=== PATIENT | female | born 2000 | race Caucasian/White ===

== ENCOUNTER 2019-09-24 19:35 | Emergency (ER) | payer OTHER, SELFPAY ==
[2019-09-24 19:43] VITALS: BP 135/70; PULSE 77; RESP 18; TEMP 36.9; O2SAT 100
[2019-09-24 19:52] VITALS: PULSE 73; RESP 16; O2SAT 99
[2019-09-24] MEDS: ALBUTEROL/IPRATROPIUM 3 ML AMPUL INH (19:52)
--- NOTE | 2019-09-24 19:57 | ED.URI ---
HPI - URI/Sore Throat <KSENIA Geller - Last Filed: 09/24/19 20:15> General Chief Complaint: Upper Respiratory Symptoms Stated Complaint: chest pain with wheezing Time Seen by Provider: 09/24/19 19:45 Source: patient Mode of arrival: Ambulatory Limitations: no limitations History of Present Illness HPI Narrative: This is a 19-year-old female, some day smoker, who presents to ED with chief complain of cold symptoms for last 2 weeks with short of breath and chest discomfort with cough. Patient reports cough and denies fever, chills, nausea or vomiting, sore throat or runny nose. She had ill exposure to someone who has cold symptoms but denies recent foreign travel. Patient has history of childhood asthma which she grew out of bed but she is prone to get upper respiratory infection. Patient is not currently using inhaler at this time. Related Data Home Medications Medication Instructions Recorded Confirmed lithium carbonate 09/24/19 prazosin 09/24/19 Previous Rx's Medication Instructions Recorded prednisone 20 mg PO DAILY 4 Days #4 tab 09/24/19 Allergies Allergy/AdvReac Type Severity Reaction Status Date / Time No Known Drug Allergies Allergy Verified 09/24/19 19:52 Review of Systems <KSENIA Geller - Last Filed: 09/24/19 20:15> Review of Systems Narrative: General: Denies fever, chills, fatigue, malaise, sweats. HEENT: Denies sinus pain, ear pain, sore throat, difficulty swallowing, dizziness. Respiratory: See HPI Cardiovascular: Denies chest pain, palpitations, orthopnea, edema. Gastrointestinal: Denies nausea, vomiting, abdominal pain, diarrhea, constipation, melena. : Denies dysuria, frequency, incontinence, hematuria, urinary retention. Musculoskeletal: Denies weakness, joint pain or bony pain. Skin: Denies rash, skin lesions, or other. Neurologic: Denies weakness, headache, numbness, change in speech, confusion, seizures, incoordination. Psychiatric: No concerning psychosocial issues. 12-point review of systems is negative except for those stated above. Patient History <KSENIA Geller - Last Filed: 09/24/19 20:15> Medical History (Updated 09/24/19 @ 20:12 by KSENIA Geller) Anxiety (Acute) History of asthma (Acute) Insomnia (Acute) PTSD (post-traumatic stress disorder) (Acute) Social History Smoking Status: Current some day smoker Smoking Status: Current some day smoker Substance Use Type: marijuana Exam <KSENIA Geller - Last Filed: 09/24/19 20:15> Narrative Exam Narrative: General appearance: well developed, well nourished, in no acute distress. Head: normocephalic, atraumatic, no scalp lesions, non-tender. ENT: Hearing grossly intact. Nose without bleeding, purulent discharge. Mucous membrane moist, no mucosal lesion. Throat without erythema, tonsillar hypertrophy or exudate. Uvula in midline, airway patent. Neck/Thyroid: neck supple, full range of motion, no visible masses or meningeal signs. No JVD, non-tender without lymphadenopathy. Skin: no suspicious rashes, lesions over visible areas. Warm and dry and appropriate color for ethnicity. Heart: no clubbing, no cyanosis, no edema. S1 and S2 normal. RRR w/o murmurs, clicks, or bruits. Lungs: Breathing even and unlabored. No stridor. No accessory muscles used. Able to speak in full sentences. Lung sounds decreased in all lobes. No wheezing, crackles or rhonchi noted. Chest: normal shape and expansion. Abdomen: non-obese, non-distended. Neurologic: alert and oriented. Cognitive exam, WAX SPECIALIST and PNS grossly intact on informal exam. Psych: good eye contact, normal affect. Initial Vital Signs Initial Vital Signs: Vital Signs Temperature 98.4 F 09/24/19 19:43 Pulse Rate 77 09/24/19 19:43 Respiratory Rate 18 09/24/19 19:43 Blood Pressure 135/70 09/24/19 19:43 Pulse Oximetry 100 09/24/19 19:43 <Miguel Huber MD - Last Filed: 09/24/19 20:58> Initial Vital Signs Initial Vital Signs: Vital Signs Temperature 98.4 F 09/24/19 19:43 Pulse Rate 77 09/24/19 19:43 Respiratory Rate 18 09/24/19 19:43 Blood Pressure 135/70 09/24/19 19:43 Pulse Oximetry 100 09/24/19 19:43 Course <KSENIA Geller - Last Filed: 09/24/19 20:15> Orders Ordered: ED Orders 09/24/19 19:46 EKG-12 Lead Stat Discontinued Medications Albuterol (Ventolin Hfa Prepack) 1 box MISC SEEINSTR ONE Stop: 09/24/19 20:04 Last Admin: 09/24/19 20:10 Dose: 1 box Documented by: YINRIDDAMIEN Albuterol/Ipratropium (Duoneb) 3 ml INH NOW ONE Stop: 09/24/19 19:47 Last Admin: 09/24/19 19:52 Dose: 3 ml Documented by: YINRIDDAMIEN Prednisone (Deltasone) 20 mg PO NOW ONE Stop: 09/24/19 20:04 Last Admin: 09/24/19 20:13 Dose: 20 mg Documented by: LORI Vital Signs Vital signs: Vital Signs - 8 hr 09/24/19 19:43 09/24/19 19:52 Temperature 98.4 F Pulse Rate 77 73 Respiratory Rate 18 16 Blood Pressure [Left Arm] 135/70 Pulse Oximetry 100 99 <Miguel Huber MD - Last Filed: 09/24/19 20:58> Orders Ordered: ED Orders 09/24/19 19:46 EKG-12 Lead Stat Discontinued Medications Albuterol (Ventolin Hfa Prepack) 1 box MISC SEEINSTR ONE Stop: 09/24/19 20:04 Last Admin: 09/24/19 20:10 Dose: 1 box Documented by: GERHARD Albuterol/Ipratropium (Duoneb) 3 ml INH NOW ONE Stop: 09/24/19 19:47 Last Admin: 09/24/19 19:52 Dose: 3 ml Documented by: YINRIDDAMIEN Prednisone (Deltasone) 20 mg PO NOW ONE Stop: 09/24/19 20:04 Last Admin: 09/24/19 20:13 Dose: 20 mg Documented by: LORI Vital Signs Vital signs: Vital Signs - 8 hr 09/24/19 19:43 09/24/19 19:52 Temperature 98.4 F Pulse Rate 77 73 Respiratory Rate 18 16 Blood Pressure [Left Arm] 135/70 Pulse Oximetry 100 99 MDM - URI/Sore Throat <KSENIA Geller - Last Filed: 09/24/19 20:15> Differential Diagnosis Differential diagnosis: Likely upper respiratory infection and other (bronchitis) Medical Records Attestation: I reviewed the patient's medical records. ECG Data Attestation: I personally reviewed and interpreted this ECG as follows: Prior ECG tracings: not available for review Interpretation: SR rate at 71 NE int 154, QRS duration 82, QT/QTC 368/[address] [place] [address] elevation or depression. MDM Narrative Medical decision making narrative: This is a 19-year-old female who has history of childhood asthma who presents to ED with cough for last 2 weeks. Patient reports chest pain with cough and denies systemic illness such as fever, chills, nausea or vomiting. Patient reports she is prone to get bronchitis or URI. Patient currently is not using inhaler. Lung sounds were decrease in all lobes without obvious wheezing. Patient is afebrile with non tachypnea and O2 sat is 99% in room air. Patient was provided with nebulizer treatment while in ED and discharged to home with MDI teaching with prepack of albuterol and a short burst of prednisone course. Return precautions were discussed with the patient and patient verbalized understanding and agreement with treatment plan. Discharge Plan Departure Patient Disposition: Home Clinical Impression: Bronchitis Discharge Date/Time: 09/24/19 20:30 Instructions: DI for Acute Bronchitis Activity Restrictions/Additional Instructions: You have been diagnosed with [bronchitis, upper respiratory infection. Your lung sounds were decreased in all without obvious wheezing. Your provided with nebulizer treatment in ED and discharged to home with albuterol prepack and spacer. You can use this for chest tightness, frequent coughing, wheezing 2 puffs every 4 hours as needed. You were treated with low dose of steroid. Your EKG looks good]. What to do: *Take your medications as directed. Please take prednisone next 4 days daily and try to take it early during the day. You can use [id number] Mucinex DM for cough. Please hydrate well and use good hand hygiene to prevent transmitting illness to others. *Follow up with your primary care provider in 2-3 days, call for an appointment. Let them know you were seen in the ED and that we asked you to be seen in follow up. *Return to ED if you have any new, worsening, or concerning symptoms, such as [different or worsening chest pain, fever, unable to tolerate fluids, breathing difficulty, or any acute concerns]. Prescriptions: New prednisone 20 mg tablet 20 mg PO DAILY 4 Days Qty: 4 RF: 0 No Action lithium carbonate RF: 0 prazosin RF: 0 Referrals: [facility] [Outside]
[2019-09-24] MEDS: ALBUTEROL HFA PREPACK 1 BOX MISC (20:10)
[2019-09-24] MEDS: predniSONE 20 MG TABLET PO (20:13)
== END 2019-09-24 20:30 | disposition home or self-care (01) ==
LOC: ED 20:27
PROVIDERS: Emergency Provider Nurse Practitioner Family
DX: J40 Bronchitis, not specified as acute or chronic (principal); R07.9 Chest pain, unspecified
CPT/HCPCS: 93005; 93010; 94640; 99283

== ENCOUNTER 2019-09-30 10:30 | Emergency (ER) | payer OTHER, SELFPAY ==
[2019-09-30 10:39] VITALS: BP 117/66; PULSE 92; RESP 16; TEMP 37; O2SAT 100
--- NOTE | 2019-09-30 10:39 | ED_ITS ---
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 And trying to mediate the damage of not having insurance her therapist has increased her methylphenidate from 18 mg to 36 mg and her prazosin from 2 mg to 4 mg at bedtime she continues with lithium, propranolol and quetiapine. The methylphenidate and prazosin change was on Monday. She was seen on Monday with the bronchitis exacerbation and also started on prednisone. Today she is complaining of headache that persisted since Monday that she describes as a migraine with nausea and confusion, she complains that she is jittery increasingly anxious and having palpitations. She states that her Apple watch is noted that her resting heart rate over much the weekend was in the 130 range. She did not take her prednisone this morning. She states that her cough and wheeze has significantly improved. She has got no fevers. She does have a headache she does have increased confusion and dif ficulty thinking, no abdominal pain mild nausea, no rashes, no chest pain she has noticed the palpitations listed above Related Data Home Medications Medication Instructions Recorded Confirmed lithium carbonate 600 mg PO BEDTIME 09/30/19 09/30/19 methylphenidate HCl 36 mg PO DAILY 09/30/19 09/30/19 prazosin 2 mg PO BEDTIME 09/30/19 09/30/19 propranolol 20 mg PO PRN PRN 09/30/19 09/30/19 quetiapine 100 mg PO BEDTIME 09/30/19 09/30/19 Previous Rx's Medication Instructions Recorded prednisone 20 mg PO DAILY 4 Days #4 tab 09/24/19 Allergies Allergy/AdvReac Type Severity Reaction Status Date / Time No Known Drug Allergies Allergy Verified 09/24/19 19:52 Review of Systems Review of Systems Narrative: All systems reviewed and are unremarkable except as noted in HPI and below Patient History Medical History (Updated 09/30/19 @ 13:52 by Aundrea Talbot MD) Anxiety (Acute) History of asthma (Acute) Insomnia (Acute) Opioid use disorder, mild, in sustained remission, abuse (Acute) PTSD (post-traumatic stress disorder) (Acute) Social History Smoking Status: Current some day smoker Smoking Status: Current some day smoker Substance Use Type: marijuana Exam Narrative Exam Narrative: General: Healthy appearing, in no acute distress. Able to give a complete history but somewhat slowed and needs to be redirected.. Well- nourished well-developed HEENT: Moist mucous membranes, normal sclera with reactive pupils, Neck: supple Respiratory: Lungs are clear to auscultation, no wheezing no rales no rhonchi. Full and symmetrical air movement Cardiac: Regular rate and rhythm no murmurs no bruits Abdomen: Soft nontender good bowel tones, no flank pain Skin: Warm and dry, no rashes Neurologic: Grossly neurologically intact with no obvious asymmetries or abnormalities Extremities: No trauma, well perfused Psych: Cooperative, appropriate insight and affect Initial Vital Signs Initial Vital Signs: Vital Signs Temperature 98.6 F 09/30/19 10:39 Pulse Rate 92 H 09/30/19 10:39 Respiratory Rate 16 09/30/19 10:39 Blood Pressure 117/66 09/30/19 10:39 Pulse Oximetry 100 09/30/19 10:39 Course Orders Ordered: ED Orders 09/30/19 10:42 EKG-12 Lead Stat 09/30/19 11:45 Urinalysis and Microscopic Stat Urine Culture Stat 09/30/19 12:05 Complete Blood Count AUTO DIFF Stat Comprehensive Metabolic Panel Stat Discontinued Medications Diphenhydramine HCl (Benadryl) 25 mg IV NOW ONE Stop: 09/30/19 11:45 Last Admin: 09/30/19 12:24 Dose: 25 mg Documented by: MEHRDAD Sodium Chloride (Normal Saline 0.9%) 1,000 mls @ 1,000 mls/hr IV BOLUS ONE Stop: 09/30/19 12:43 Last Infusion: 09/30/19 13:28 Dose: 0 mls/hr Documented by: Admin: 09/30/19 12:25 Dose: 1,000 mls/hr Documented by: WANT Ketorolac Tromethamine (Toradol) 15 mg IV NOW ONE Stop: 09/30/19 11:45 Last Admin: 09/30/19 12:24 Dose: 15 mg Documented by: MEHRDAD Metoclopramide HCl (Reglan) 10 mg IV NOW ONE Stop: 09/30/19 11:45 Last Admin: 09/30/19 12:24 Dose: 10 mg Documented by: MEHRDAD Vital Signs Vital signs: Vital Signs - 8 hr 09/30/19 10:39 09/30/19 13:30 09/30/19 13:58 Temperature 98.6 F Pulse Rate 92 H 66 89 Respiratory Rate 16 12 14 Blood Pressure 117/66 117/66 Blood Pressure [Right Arm] 117/66 Pulse Oximetry 100 99 98 Medical Decision Making Medical Records Medical records reviewed: Yes I reviewed the patient's medical records. Lab Data Lab results reviewed: Yes I reviewed the patient's lab results. Result diagrams: 09/30/19 12:05 09/30/19 12:05 Labs: Lab Results 09/30/19 09/30/19 09/30/19 Range/Units 11:45 12:05 12:05 WBC 10.4 (4.5-11.0) X10^3/uL RBC 4.87 (4.0-5.2) X10^6/uL Hgb 13.0 (12.0-16.0) g/dL Hct 39.8 (36-46) % MCV 81.8 (80-100) fL MCH 26.6 (26-34) PG MCHC 32.6 (30-36) % RDW 15.2 H (11.6-14.8) % Plt Count 338 (150-400) X10^3/uL Neut % (Auto) 92.6 H (50-75) % Lymph % (Auto) 5.1 L (25-40) % [place] % (Auto) 1.8 L (3-14) % Eos % (Auto) 0.3 L (2-4) % Baso % (Auto) 0.2 (0-2) % Neut # (Auto) 9600 H (2726-7601) /uL Lymph # (Auto) 500 L (5201-1335) /uL [place] # (Auto) 200 (0-900) /uL Eos # (Auto) 0 (0-450) /uL Baso # (Auto) 0 (0-100) /uL Sodium 138 (137-145) mmol/L Potassium 4.4 (3.4-5.1) mmol/L Chloride 105 (98-107) mmol/L Carbon Dioxide 20 L (22-32) mmol/L BUN 9 (7-17) mg/dL Creatinine 0.70 (0.52-1.04) mg/dL Estimated GFR > 60.0 (>60) mL/min BUN/Creatinine Ratio 12.9 (6-22) Glucose 119 H (70-100) mg/dL Calcium 10.3 H (8.4-10.2) mg/dL Total Bilirubin 0.9 (0.2-1.3) mg/dL AST 36 (14-36) IU/L ALT 17 (<35) IU/L Alkaline Phosphatase 76 (38-126) U/L Total Protein 9.3 H (6.3-8.2) g/dL Albumin 5.3 H (3.5-5.0) g/dL Globulin 4.0 (1.7-4.1) g/dL Albumin/Globulin Ratio 1.3 (1.0-2.8) Urine Color Yellow Urine Appearance Clear Urine pH 8.0 (4.5-8.0) Ur Specific [place] 1.015 (1.000-1.035) Urine Protein Negative (Negative) Urine Glucose (UA) Negative (Negative) g/dL Urine Ketones 3+ H (NEGATIVE) Urine Occult Blood Negative (Negative) Urine Nitrate Negative (Negative) Urine Bilirubin Negative (NEGATIVE) Urine Urobilinogen 0.2 (0.2) E.U./dL Ur Leukocyte Esterase Trace H (NEGATIVE) Urine RBC None seen (0-5/HPF) Urine WBC 5-10/hpf H (0-5/HPF) Ur Squamous Epith Cells 1-5 /hpf (0-5/HPF) Urine Bacteria Few (2-10) H (None) Ur Culture Indicated? Specimen cultured Point of Care Testing Test Results Negative Urine Dip Bedside Urine Glucose Negative Bedside Urine Bilirubin - Negative Bedside Urine Ketone +++ 80 Urine Specific [place] 1.015 Bedside Urine Occult Blood - Negative Bedside Urine pH 8.0 Bedside Urine Protein - Negative Bedside Urine Urobilinogen - Negative Bedside Urine Nitrite - Negative Bedside Urine Leukocytes + 70 Esterase Point of care testing: Point of Care Testing Test Results Negative Urine Dip Bedside Urine Glucose Negative Bedside Urine Bilirubin - Negative Bedside Urine Ketone +++ 80 Urine Specific [place] 1.015 Bedside Urine Occult Blood - Negative Bedside Urine pH 8.0 Bedside Urine Protein - Negative Bedside Urine Urobilinogen - Negative Bedside Urine Nitrite - Negative Bedside Urine Leukocytes + 70 Esterase ECG Data Attestation: I personally reviewed and interpreted this ECG as follows: Interpretation: Sinus rhythm at a rate of 84 Normal axis normal intervals No acute ischemic changes MDM Narrative Medical decision making narrative: On re-evaluation, patient feels much better after L of fluid in treatment for the headache. The tremor is gone her heart r ate is down to the mid 70s. She did review her medications with her psychiatrist. He did not think that the Concerta would necessarily do this but suggested she hold her dose for a couple of days and will readjust as needed. I suspect that her symptoms are multifactorial and a result of all of the medication changes as well as the addition of prednisone in the same 24 hour. At this time, she is doing better, safe for home discharge. Recommended that she do not take the last day of her prednisone as she is not having any wheezing or symptoms at this time and hold the Concerta for a day or 2 as recommended by her psychiatrist and follow-up with her psychiatrist. Discharge Plan Departure Patient Disposition: Home Clinical Impression: Heart palpitations, Anxiety, Acute dehydration Headache Qualifiers: Headache type: unspecified Headache chronicity pattern: acute headache Intractability: not intractable Qualified Code(s): R51 - Headache Discharge Date/Time: 09/30/19 13:58 Activity Restrictions/Additional Instructions: Thank you for coming in today. Of your lab work is very reassuring as is your EKG. I suspect that your symptoms are a combination of all of the medication changes occurring at 1 time. Because you are not wheezing on today's exam I am going to suggest you do not take your final dose of prednisone. Your psychiatrist has recommended holding the methylphenidate for a day or 2 and I believe this makes some sense. I would encourage you to follow-up with him. I hope that you feel better shortly Prescriptions: No Action prednisone 20 mg tablet 20 mg PO DAILY 4 Days Qty: 4 RF: 0 lithium carbonate 300 mg tablet extended release 600 mg PO BEDTIME RF: 0 quetiapine 100 mg tablet 100 mg PO BEDTIME RF: 0 methylphenidate HCl 36 mg tablet extended release 24hr 36 mg PO DAILY RF: 0 prazosin 1 mg capsule 2 mg PO BEDTIME RF: 0 propranolol 20 mg tablet 20 mg PO PRN PRN (Reason: Panic Attack(S)) RF: 0
[2019-09-30 12:17] LABS: Add Manual Diff / Slide Review NO; Basophils Absolute Auto 0 /uL (0-100); Basophils Percent Auto 0.2 % (0-2); Eosinophils Absolute Auto 0 /uL (0-450); Eosinophils Percent Auto 0.3 % (2-4); Hematocrit 39.8 % (36-46); Lymphocytes Absolute Auto 500 /uL (1100-4500); Lymphocytes Percent Auto 5.1 % (25-40); Mean Corpuscular HGB Conc 32.6 % (30-36); Mean Corpuscular Hemoglobin 26.6 PG (26-34); Mean Corpuscular Volume 81.8 fL (80-100); Monocytes Absolute Auto 200 /uL (0-900); Monocytes Percent Auto 1.8 % (3-14); Neutrophils Absolute Auto 9600 /uL (1500-7000); Neutrophils Percent Auto 92.6 % (50-75); Platelet Count 338 X10^3/uL (150-400); Red Blood Cell Count 4.87 X10^6/uL (4.0-5.2); Red Cell Distribution Width 15.2 % (11.6-14.8); White Blood Cell Count 10.4 X10^3/uL (4.5-11.0)
[2019-09-30] MEDS: METOCLOPRAMIDE 10 MG/2 ML INJ IV (12:24)
[2019-09-30] MEDS: diphenhydrAMINE 50 MG/ML VIAL 25 MG IV (12:24)
[2019-09-30] MEDS: KETOROLAC 60 MG/2 ML VIAL 15 MG IV (12:24)
[2019-09-30] MEDS: SODIUM CHLORIDE 0.9% 1,000 ML 1000 ML IV (12:25)
[2019-09-30 12:29] LABS: Alanine Aminotransferase 17 IU/L (<35); Albumin 5.3 g/dL (3.5-5.0); Albumin Globulin Ratio 1.3 (1.0-2.8); Alkaline Phosphatase 76 U/L (38-126); Aspartate Aminotransferase 36 IU/L (14-36); BUN Creatinine Ratio 12.9 (6-22); Bilirubin Total 0.9 mg/dL (0.2-1.3); Blood Urea Nitrogen 9 mg/dL (7-17); Calcium 10.3 mg/dL (8.4-10.2); Carbon Dioxide 20 mmol/L (22-32); Chloride 105 mmol/L (98-107); Estimated Glomerular Filt Rate > 60.0 mL/min (>60); Glucose 119 mg/dL (70-100); HEMOLYSIS 15 (0-50); Potassium 4.4 mmol/L (3.4-5.1); Sodium 138 mmol/L (137-145); Total Protein 9.3 g/dL (6.3-8.2)
[2019-09-30 13:01] LABS: Appearance Urine UA CLEAR; Bilirubin Urine UA NEGATIVE (NEGATIVE); Color Urine UA YELLOW; Glucose Urine UA NEGATIVE (Negative); Ketones Urine UA 3+ (NEGATIVE); Leukocyte Esterase Urine UA TRACE (NEGATIVE); Nitrite Urine UA NEGATIVE (Negative); Occult Blood Urine UA NEGATIVE (Negative); Protein Urine UA NEGATIVE (Negative); RBC Urine None Seen (0-5/HPF); Specific Gravity Urine UA 1.015 (1.000-1.035); Urobilinogen Urine UA 0.2 E.U./dL (0.2)
[2019-09-30 13:18] LABS: WBC Urine 5-10/HPF (0-5/HPF)
[2019-09-30 13:19] LABS: Bacteria Urine Few (2-10); Culture Indicated Urine Specimen Cultured; Squamous Epithelial Cell Urine 1-5 /HPF (0-5/HPF)
[2019-09-30 13:30] VITALS: BP 117/66; PULSE 66; RESP 12; O2SAT 99
[2019-09-30 13:58] VITALS: BP 117/66; PULSE 89; RESP 14; O2SAT 98
== END 2019-09-30 13:58 | disposition home or self-care (01) ==
PROVIDERS: Emergency Provider Emergency Medicine
DX: R00.2 Palpitations (principal); F41.9 Anxiety disorder, unspecified; E86.0 Dehydration; R51 Headache
CPT/HCPCS: 36415; 80053; 81001; 81003; 81025; 85025; 87086; 93005; 93010; 96361; 96374; 96375; 99284; J1200; J1885; J2765